=== PATIENT | female | born 1940 | race African-American/Black ===

== ENCOUNTER 2020-11-25 23:30 | Observation (INO) ==
[2020-11-26 00:16] LABS: Basophils % 0.8 % (0.0-0.8); Eosinophils # 0.1 10*3/uL (0.0-0.87); Eosinophils % 1.8 % (0.00-10.9); Hematocrit 41.1 VOL% (35.7-47.0); Hemoglobin 13.7 GM/DL (12.0-16.0); Immature Granulocytes % 0.3 %; Immature Granulocytes Absolute 0.01 #; Lymphocytes # 1.3 10*3/uL (1.4-4.0); Lymphocytes % 32.2 % (21.3-54.2); Mean Corpuscular HGB Conc 33.3 GM/DL (32-36); Mean Corpuscular Volume 95.4 FL (87-102); Mean Platelet Volume 10.9 FL (9.6-12.0); Monocytes % 17.3 % (1.7-12.7); Neutrophils % 47.6 % (38.7-73.9); Platelet Count 143 T/CUMM (130-400); Red Blood Count 4.31 MC/CUMM (3.8-5.5); Red Cell Distribution Width 12.8 % (9.3-17.3); White Blood Count 3.9 T/CUMM (4-12)
[2020-11-26] MEDS ORDERED: ASPIRIN 325 MG TABLET PO STA (00:34)
[2020-11-26 00:38] LABS: Bilirubin,Total 0.4 MG/DL (0.20-1.00); INR 1.1; Osmolality,Calculated 280.7 MOS/KG (273-304); PT Patient Result 12.4 SECS (10.5-12.0); Partial Thromboplastin Time 29.4 SECS (23.9-33.8); Potassium 3.5 MMOL/L (3.5-5.1); Total Protein 7.5 G/DL (6.4-8.2)
[2020-11-26] MEDS ORDERED: ACETAMINOPHEN 325 MG TABLET PO PRN (01:15)
[2020-11-26] MEDS ORDERED: ONDANSETRON 4 MG/2 ML VIAL IV PRN (01:15)
[2020-11-26] MEDS ORDERED: DEXTROSE 50% 25 GM/50 ML VIAL IV PRN ×2 (01:15→01:19)
[2020-11-26] MEDS ORDERED: GLUCAGON 1 MG VIAL IM PRN ×2 (01:15→01:19)
[2020-11-26] MEDS ORDERED: MORPHINE 2 MG/1 ML SYRINGE IV PRN (01:15)
[2020-11-26 02:36] LABS: Eosinophils 2 % (0-10); Lymphocytes 35 % (20-55); Platelet Estimate Adequate; Segmented Neutrophils 43 % (50-85); Total Cells Counted 100
[2020-11-26 05:37] LABS: Basophils % 0.6 % (0.0-0.8); Eosinophils % 0.9 % (0.00-10.9); Hematocrit 38.9 VOL% (35.7-47.0); Hemoglobin 12.7 GM/DL (12.0-16.0); Immature Granulocytes % 0.3 %; Immature Granulocytes Absolute 0.01 #; Lymphocytes # 0.8 10*3/uL (1.4-4.0); Lymphocytes % 22.8 % (21.3-54.2); Mean Corpuscular HGB Conc 32.6 GM/DL (32-36); Mean Corpuscular Volume 96.8 FL (87-102); Mean Platelet Volume 10.9 FL (9.6-12.0); Monocytes % 14.1 % (1.7-12.7); Neutrophils % 61.3 % (38.7-73.9); Platelet Count 130 T/CUMM (130-400); Red Blood Count 4.02 MC/CUMM (3.8-5.5); Red Cell Distribution Width 12.8 % (9.3-17.3); White Blood Count 3.3 T/CUMM (4-12)
[2020-11-26 06:00] LABS: Calcium 8.6 MG/DL (8.5-10.1); Osmolality,Calculated 279.5 MOS/KG (273-304); Potassium 4.1 MMOL/L (3.5-5.1)
[2020-11-26 06:07] LABS: Hypochromasia Slight; Microcytosis Slight
[2020-11-26 06:08] LABS: Platelet Estimate Normal
[2020-11-26] MEDS ORDERED: amLODIPine 10 MG TABLET PO SCH (09:00)
[2020-11-26] MEDS ORDERED: ASPIRIN EC 81 MG TABLET PO SCH (09:00)
[2020-11-26] MEDS ORDERED: ENOXAPARIN 40 MG/0.4 ML SYRINGE SUBCUT SCH (09:00)
[2020-11-26] MEDS ORDERED: PANTOPRAZOLE 40 MG TABLET PO SCH (09:00)
[2020-11-26] MEDS: INSULIN REGULAR 100 UNIT/ML SUBCUT SCH ×2 (09:03→12:22)
[2020-11-26 12:21] VITALS: BP 116/54
[2020-11-26] MEDS ORDERED: ROSUVASTATIN 10 MG TABLET PO SCH (21:00)
== END 2020-11-26 14:16 | disposition home or self-care (01) ==
LOC: N.ED 23:30 → N.EDINP 23:30 → N.TELEN 11-26 03:29
PROVIDERS: ADMIT Internal Medicine Geriatric Medicine; ATTEND Internal Medicine Geriatric Medicine

== ENCOUNTER 2021-03-15 08:32 | Observation (INO) ==
[2021-03-15] MEDS ORDERED: PANTOPRAZOLE 40 MG VIAL IV STA (09:08)
[2021-03-15 09:33] LABS: Basophils % 0.2 % (0.0-0.8); Eosinophils % 0.2 % (0.00-10.9); Hematocrit 40.8 VOL% (35.7-47.0); Hemoglobin 13.3 GM/DL (12.0-16.0); Immature Granulocytes % 0.2 %; Immature Granulocytes Absolute 0.01 #; Lymphocytes # 0.6 10*3/uL (1.4-4.0); Lymphocytes % 11.4 % (21.3-54.2); Mean Corpuscular HGB Conc 32.6 GM/DL (32-36); Mean Corpuscular Volume 95.1 FL (87-102); Mean Platelet Volume 11.6 FL (9.6-12.0); Monocytes % 7.5 % (1.7-12.7); Neutrophils % 80.5 % (38.7-73.9); Platelet Count 136 T/CUMM (130-400); Red Blood Count 4.29 MC/CUMM (3.8-5.5); Red Cell Distribution Width 13.6 % (9.3-17.3); White Blood Count 5.2 T/CUMM (4-12)
[2021-03-15 09:43] LABS: PT Patient Result 11.4 SECS (10.5-12.0); Partial Thromboplastin Time 20.2 SECS (23.8-32.1)
[2021-03-15 09:55] LABS: Albumin 4.1 G/DL (3.4-5.0); Bilirubin,Total 0.8 MG/DL (0.20-1.00); Calcium 9.6 MG/DL (8.5-10.1); Potassium 4.2 MMOL/L (3.5-5.1); Total Protein 7.7 G/DL (6.4-8.2)
[2021-03-15] MEDS ORDERED: ONDANSETRON 4 MG/2 ML VIAL IV PRN (11:55)
[2021-03-15] MEDS ORDERED: ACETAMINOPHEN 325 MG TABLET PO PRN (11:55)
[2021-03-15] MEDS ORDERED: GLUCAGON 1 MG VIAL IM PRN (11:55)
[2021-03-15] MEDS ORDERED: BISACODYL 5 MG TABLET PO PRN (11:55)
[2021-03-15] MEDS ORDERED: DEXTROSE 50% 25 GM/50 ML SYRINGE IV PRN (12:02)
[2021-03-15 15:12] LABS: Hematocrit 41.9 VOL% (35.7-47.0); Hemoglobin 13.8 GM/DL (12.0-16.0)
[2021-03-15 20:03] LABS: Hematocrit 36.8 VOL% (35.7-47.0); Hemoglobin 12.3 GM/DL (12.0-16.0)
[2021-03-15] MEDS: PANTOPRAZOLE 40 MG TABLET PO SCH (21:21)
[2021-03-15] MEDS: POLYETHYLENE GLYCOL POWDER 17 GM PACK PO SCH (21:26)
[2021-03-16 05:58] LABS: Basophils % 0.6 % (0.0-0.8); Eosinophils # 0.1 10*3/uL (0.0-0.87); Eosinophils % 3.8 % (0.00-10.9); Hematocrit 37.8 VOL% (35.7-47.0); Hemoglobin 12.3 GM/DL (12.0-16.0); Immature Granulocytes % 0.3 %; Immature Granulocytes Absolute 0.01 #; Lymphocytes # 0.7 10*3/uL (1.4-4.0); Lymphocytes % 21.7 % (21.3-54.2); Mean Corpuscular HGB Conc 32.5 GM/DL (32-36); Mean Corpuscular Volume 96.4 FL (87-102); Mean Platelet Volume 11.9 FL (9.6-12.0); Monocytes % 17.3 % (1.7-12.7); Neutrophils % 56.3 % (38.7-73.9); Platelet Count 118 T/CUMM (130-400); Red Blood Count 3.92 MC/CUMM (3.8-5.5); Red Cell Distribution Width 13.8 % (9.3-17.3); White Blood Count 3.2 T/CUMM (4-12)
[2021-03-16 06:11] LABS: Calcium 8.8 MG/DL (8.5-10.1); Osmolality,Calculated 276.7 MOS/KG (273-304); Potassium 3.7 MMOL/L (3.5-5.1)
[2021-03-16 07:03] LABS: Anisocytosis Slight; Band Neutrophils 4 % (0-10); Burr Cells Few; Eosinophils 5 % (0-10); Lymphocytes 24 % (20-55); Ovalocytes Few; Platelet Estimate Adequate; Segmented Neutrophils 54 % (50-85); Smudge Cells Few; Total Cells Counted 100
[2021-03-16] MEDS: PANTOPRAZOLE 40 MG TABLET PO SCH (08:51)
[2021-03-16] MEDS: POLYETHYLENE GLYCOL POWDER 17 GM PACK PO SCH (08:52)
[2021-03-16 11:54] VITALS: BP 88/39
== END 2021-03-16 14:15 | disposition home or self-care (01) ==
LOC: N.ED 08:32 → N.EDINP 08:32 → N.5E 14:45
PROVIDERS: ADMIT Internal Medicine; ATTEND Internal Medicine